=== PATIENT | male | born 1975 | race Two or more races ===

== ENCOUNTER 2017-07-23 00:46 | Emergency (ER) | payer MEDICAID ==
[~2017-07-23] VITALS: Ht 167.6 cm; Wt 93.0 kg
[2017-07-23 01:29] LABS: Basophils # (auto) 0.1 uL; Basophils % (auto) 1.1 % (0.0-2.0); Eosinophils # (auto) 0 uL; Eosinophils % (auto) 0.2 % (0.0-7.0); Hematocrit 44.4 % (41.0-53.0); Hemoglobin 15.3 g/dL (13.5-17.5); Lymphocytes % (auto) 15.7 % (10.0-50.0); Mean Corpuscular Hgb Conc. 34.4 g/dL (32.0-36.0); Mean Corpuscular Volume 93.1 fL (80.0-100.0); Monocytes # (auto) 1.5 uL; Monocytes % (auto) 12.1 % (0.0-12.0); Neutrophils # (auto) 9.1 uL; Neutrophils % (auto) 70.9 % (37.0-80.0); Nucleated Red Blood Cells % 0.1 %; Platelet Count (auto) 344 10^3/uL (140-450); Red Blood Cells 4.77 10^6/uL (4.5-5.90); Red Cell Distribution Width 13.2 % (11.8-14.3); White Blood Cell 12.8 10^3/uL (4.4-10.8)
[2017-07-23 01:45] LABS: Albumin 3.2 g/dL (3.4-5.0); Calcium 8.7 mg/dL (8.5-10.1); Potassium 3.1 mmol/L (3.5-5.1)
[2017-07-23 01:49] LABS: BUN/Creatinine Ratio 8.1; Bilirubin, Total 1.1 mg/dL (0.2-1.0); Total Protein 8.7 g/dL (6.4-8.2)
[2017-07-23 01:50] LABS: Urine Bacteria MOD /hpf (None Seen); Urine Blood 3+ /uL (Negative); Urine Budding Yeast OCCASIONAL /hpf (None Seen); Urine Specific Gravity 1.021 (1.001-1.035); Urine WBC 704 /hpf (0 - 3); Urine WBC Clumps PRESENT /hpf (None Seen)
[2017-07-23] MEDS ORDERED: SODIUM CHLORIDE 0.9% 1,000 ML IVB ONE (06:44)
[2017-07-23] MEDS ORDERED: POTASSIUM CHL 20MEQ/50ML 50 ML IV SCH (07:00)
[2017-07-23 07:25] VITALS: BP 108/67
[2017-07-23 07:54] LABS: Amylase 85 U/L (25-115); Lipase 67 U/L (73-393)
[2017-07-23 08:19] LABS: Lactic Acid w/Reflex 2.1 mmol/L (0.4-2.0)
== END 2017-07-23 09:00 | disposition left against medical advice (07) ==
LOC: ER 00:46
DX: K57.92 Diverticulitis of intestine, part unspecified, without perforation or abscess without bleeding (principal); N39.0 Urinary tract infection, site not specified; E87.6 Hypokalemia
CPT/HCPCS: 36415; 71045; 74176; 80053; 81001; 82150; 83605; 83690; 85025; 87040; 94761; 96361; 96374

== ENCOUNTER 2017-07-23 21:32 | Emergency (ER) | payer MEDICAID ==
[~2017-07-23] VITALS: Ht 167.6 cm; Wt 94.3 kg
[2017-07-23 22:26] VITALS: BP 143/89
[2017-07-24] MEDS ORDERED: IBUPROFEN 800 MG TAB PO ONE
== END 2017-07-24 00:27 | disposition home or self-care (01) ==
LOC: ER 21:32
DX: J02.9 Acute pharyngitis, unspecified (principal)